=== PATIENT | male | born 1955 | race Two or more races ===

== ENCOUNTER 2019-04-26 13:04 | Emergency (ER) | payer OTHER ==
[~2019-04-26] VITALS: Ht 170.2 cm; Wt 90.7 kg
--- NOTE | 2019-04-26 13:12 | NUR ---
PT BIB [facility] FROM HOME, LOW BACK PAIN WORSE TODAY,H/O GLF A MONTH AGO. PT AAOX4, NO ACUTE DISTRESS NOTED, CONNECTED TO THE MONITOR. WILL CONTINUE TO MONITOR
--- NOTE | 2019-04-26 13:56 | NUR ---
IV LINE ESTABLISHED. BLOOD DRAWNED AND SENT TO LAB
[2019-04-26] MEDS ORDERED: MORPHINE SULFATE INJ 2 MG/ML DISP.SYRIN IV ONE (14:00)
[2019-04-26] MEDS ORDERED: ONDANSETRON HCL/PF 4 MG/2 ML VIAL IVP ONE (14:00)
[2019-04-26] MEDS ORDERED: IV NS 0.9% 1,000 ML BAG IV ONE (14:00)
[2019-04-26 14:01] LABS: BASOPHILS # (AUTO) 0.1 /CMM (0.0-0.2); BASOPHILS % (AUTO) 1.1 % (0.0-2.0); EOSINOPHILS % (AUTO) 1.8 % (0.0-6.0); HEMATOCRIT 38 % (39-51); LYMPHOCYTES # (AUTO) 1.3 /CMM (0.8-4.8); LYMPHOCYTES % (AUTO) 17.7 % (20.0-44.0); MEAN CORPUSCULAR HGB CONC 35 g/dl (31.0-36.0); MEAN CORPUSCULAR VOLUME 94 fL (80-96); MONOCYTES # (AUTO) 0.4 /CMM (0.1-1.30); MONOCYTES % (AUTO) 5.6 % (2.0-12.0); NEUTROPHILS # (AUTO) 5.4 /CMM (1.8-8.9); NEUTROPHILS % (AUTO) 73.8 % (43.0-81.0); PLATELET COUNT (AUTO) 142 /CMM (150-450); RED BLOOD CELL COUNT(AUTO) 3.97 MIL/uL (4.5-6.0); WHITE BLOOD COUNT (AUTO) 7.3 K/uL (4.3-11.0)
[2019-04-26 14:02] LABS: APPEARANCE,URINE Clear (CLEAR); BILIRUBIN,URINE Negative (NEGATIVE); BLOOD, URINE Negative Ery/uL (NEGATIVE); COLOR,URINE Yellow (YELLOW); KETONES,URINE Negative (NEGATIVE); LEUKOCYTE ESTERASE ,URINE Negative (NEGATIVE); NITRITE, URINE Negative (NEGATIVE); PROTEIN,URINE Negative (NEGATIVE); UGLUCOSE Negative (NEGATIVE); UROBILINOGEN,URINE 0.2 EU/dL (0.2)
[2019-04-26] MEDS ORDERED: ONDANSETRON HCL/PF 4 MG/2 ML VIAL ONE (14:07)
[2019-04-26] MEDS ORDERED: MORPHINE SULFATE INJ 4 MG/ML DISP.SYRIN ONE (14:08)
--- NOTE | 2019-04-26 14:10 | NUR ---
PT SENT TO CT
[2019-04-26 14:13] LABS: CALCIUM, SERUM 9.2 mg/dL (8.5-10.1); CREATININE 1.3 mg/dL (0.6-1.3); POTASSIUM 3.6 mmol/L (3.5-5.1)
[2019-04-26 14:18] LABS: ALBUMIN 3.6 g/dL (3.4-5.0); BILIRUBIN,DIRECT 0.1 mg/dL (0.0-0.2); BILIRUBIN,TOTAL 0.5 mg/dL (0.2-1.0); TOTAL PROTEIN, SERUM 6.3 g/dL (6.4-8.2)
--- NOTE | 2019-04-26 14:30 | NUR ---
URINE SPECIMEN COLLECTED AND SENT TO LAB
--- NOTE | 2019-04-26 14:36 | NUR ---
PT AWAKE, CONNECTED BACK TO THE MONITOR. WILL CONTINUE TO MONITOR.
--- NOTE | 2019-04-26 15:35 | NUR ---
Note irena in EDM - 04/26/19 at 1537 by LYNDSEY IV removed. Catheter intact and site benign. Pressure and 4x4 applied to site. No bleeding noted. Patient discharged to waiting area in stable condition. Written and verbal after care instructions given. Patient verbalizes understanding of instruction.
--- NOTE | 2019-04-26 15:37 | NUR ---
IV removed. Catheter intact and site benign. Pressure and 4x4 applied to site. No bleeding noted. Patient discharged to home in stable condition. Written and verbal after care instructions given. Patient verbalizes understanding of instruction.
[2019-04-26 15:38] VITALS: BP 137/82
[2019-04-27] MEDS ORDERED: METO25TA6 PO (08:24)
[2019-04-27] MEDS ORDERED: CLOP75TA15 PO (08:24)
== END 2019-04-26 15:39 | disposition home or self-care (01) ==
LOC: ER 13:08
DX: S39.012A Strain of muscle, fascia and tendon of lower back, initial encounter (principal); I10 Essential (primary) hypertension; Z86.73 Personal history of transient ischemic attack (TIA), and cerebral infarction without residual deficits; Z60.2 Problems related to living alone; W18.39XA Other fall on same level, initial encounter; Y93.89 Activity, other specified; Y92.89 Other specified places as the place of occurrence of the external cause; Y99.8 Other external cause status
CPT/HCPCS: 36415; 74176; 80048; 80076; 81001; 85025; 96374; 96375; 99284; J2270; J2405; J7030; 81000-TC

== ENCOUNTER 2019-04-26 19:56 | Inpatient (IN) | payer OTHER ==
[~2019-04-26] VITALS: Ht 170.2 cm; Wt 112.0 kg
--- NOTE | 2019-04-26 20:18 | NUR ---
PT [address]IB[address] C/O BACK PAIN, DENIES TRAUMA. WAS SEEN HERE EARLIER TODAY FOR SAME PROBLEM. PT ALSO NOTED WITH ABRASION TO RIGHT ELBOW. PT DENIES FALL AND STATES " I DONT KNOW HOW I GOT THAT" PT AOX3 RR EVEN AND UNLABORED. NO SOB NOTED. NO NVD AT THIS TIME. PT GOWNED. SEEN BY PAUL MOONEY
--- NOTE | 2019-04-26 20:21 | NUR ---
PT TO CT.
[2019-04-26] MEDS ORDERED: ONDANSETRON HCL/PF 4 MG/2 ML VIAL IV ONE (20:30)
[2019-04-26] MEDS ORDERED: MORPHINE SULFATE INJ 2 MG/ML DISP.SYRIN IV ONE (20:30)
[2019-04-26] MEDS ORDERED: MORPHINE SULFATE INJ 4 MG/ML DISP.SYRIN ONE (20:38)
[2019-04-26] MEDS ORDERED: ONDANSETRON HCL/PF 4 MG/2 ML VIAL ONE (20:38)
--- NOTE | 2019-04-26 20:54 | NUR ---
MEDICATED FOR PAIN PER [facility] ORDER. PT CHRIS WELL.
[2019-04-26] MEDS ORDERED: methylPREDNISolone SOD SUCC 125 MG/2ML VIAL IV ONE (21:30)
[2019-04-26] MEDS ORDERED: methylPREDNISolone SOD SUCC 125 MG/2ML VIAL ONE (22:06)
--- NOTE | 2019-04-26 23:25 | NUR ---
CODE STROKE ACTIVATED PER
[2019-04-26 23:47] LABS: BASOPHILS # (AUTO) 0.1 /CMM (0.0-0.2); BASOPHILS % (AUTO) 1.7 % (0.0-2.0); HEMATOCRIT 39 % (39-51); HEMOGLOBIN 13.3 g/dL (13.5-17.5); LYMPHOCYTES # (AUTO) 1.2 /CMM (0.8-4.8); LYMPHOCYTES % (AUTO) 16.8 % (20.0-44.0); MEAN CORPUSCULAR HGB CONC 34 g/dl (31.0-36.0); MEAN CORPUSCULAR VOLUME 95 fL (80-96); MONOCYTES # (AUTO) 0.4 /CMM (0.1-1.30); MONOCYTES % (AUTO) 5.4 % (2.0-12.0); NEUTROPHILS # (AUTO) 5.3 /CMM (1.8-8.9); NEUTROPHILS % (AUTO) 74.1 % (43.0-81.0); PLATELET COUNT (AUTO) 142 /CMM (150-450); RED BLOOD CELL COUNT(AUTO) 4.07 MIL/uL (4.5-6.0); WHITE BLOOD COUNT (AUTO) 7.2 K/uL (4.3-11.0)
--- NOTE | 2019-04-26 23:47 | NUR ---
PT AAOX3, SPEAKING IN FULL SENTENCES. 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 PT STS LT LEG WEAK FOR SOME TIME NOW. DENIES ARDON, DIZZINESS, NUMBNESS, VISUAL CHANGES, N/V, CP, SOB @ THIS TIME. PLACED ON JUNIOR ARCHITECT, SR. WILL CONT TO MONITOR.
[2019-04-26 23:53] LABS: CALCIUM, SERUM 9.1 mg/dL (8.5-10.1); CARBON DIOXIDE 26 mmol/L (21-32); CHLORIDE 100 mmol/L (98-107); CREATININE 1.4 mg/dL (0.6-1.3); GLUCOSE 84 mg/dL (74-106); POTASSIUM 3.4 mmol/L (3.5-5.1); SODIUM SERUM 126 mmol/L (136-145); UREA NITROGEN, BLOOD 14 mg/dL (7-18)
[2019-04-26] MEDS ORDERED: IOHEXOL-350 100 ML VIAL IV ONE (23:55)
[2019-04-26] MEDS ORDERED: CT SWABBABLE VALVE TRANS SET 1 EA INFUS.SET MC ONE (23:55)
[2019-04-26] MEDS ORDERED: IV NS 0.9% 250 ML IV ONE (23:55)
[2019-04-27 00:03] LABS: CHOLESTEROL 129 mg/dL (<200); HDL CHOLESTEROL 33 mg/dL (40-60); LDL 74 mg/dL (0-99); TRIGLYCERIDES 131 mg/dL (30-150)
--- NOTE | 2019-04-27 00:43 | NUR ---
PT ASSIGNED TO 314-2
--- NOTE | 2019-04-27 00:45 | NUR ---
PT REASSIGNED TO 313-2
--- NOTE | 2019-04-27 00:48 | NUR ---
REPORT GIVEN TO MAHESH NEGRON
[2019-04-27 01:00] VITALS: BP 154/76
[2019-04-27] MEDS ORDERED: ENOXAPARIN SODIUM 40 MG/0.4 ML DISP.SYRIN SQ ONE (01:00)
[2019-04-27] MEDS: IV NS 0.9% 1,000 ML IV PRN (01:57)
[2019-04-27 04:00] VITALS: BP 96/82
--- NOTE | 2019-04-27 04:45 | NUR ---
CHANGE IN MENTAL STATUS PATIENT SEEN FOR ROUTINE NEURO CHECK. PATIENT FOUND TO HAVE DROPPED FROM BASELINE GCS 14 DOWN TO GCS 12. PATIENT DIFFICULT TO ARROUSE. WHEN ARROUSED HE WAS CONFUSED ORIENTED X1. PATIENT STILL ABLE TO MOVE ALL EXTREMITIES WITH GOOD STRENGTH. FACE APPEARS SYMMETRICAL. PATIENT STOOD AT BEDSIDE WITH MINIMAL ASSIST TO USE URINAL. GRAVES CALLED TO INFORM OF STATUS CHANGE. NEW STAT ORDERS FOR ABG AND AMMONIA GIVEN.
[2019-04-27 05:12] LABS: ABG BASE EXCESS -3.5 mmol/L; ABG OXYGEN SATURATION 92.1 % (92.0-98.5); ABG PCO2 41.5 mmHg (35.0-45.0); ABG PH 7.343 (7.350-7.450); ABG PO2 70.9 mmHg (75.0-100.0); AaDO2 29.1 mmHg; COHb 0.9 % (0.5-1.5); MetHb 0.5 % (0.0-1.5); O2Hb 90.8 % (94.0-97.0); SITE, ABG Left Radial; VENT MODE, BG ROOM AIR
--- NOTE | 2019-04-27 05:30 | NUR ---
LAB INTO DRAW STAT AMMONIA ABG RESULTS RETURNED. PATIENT OXYGEN FOUND TO BE SLIGHTLY LOW AT 70.9 PER RT RECOMMENDATION PATIENT PLACED ON 2LNC. PATIENT LYING IN BED ARROUSABLE TO TOUCH, APPEARS LETHARGIC SLEEPY. INFORMED OF OXYGEN TREATMENT PT STATED OH AND AGAIN CLOSED HIS EYES. WILL CONT TO MONITOR.
[2019-04-27] MEDS ORDERED: BLOOD SUGAR DIAGNOSTIC 1 EACH STRIP IN SCH ×2 (06:00→07:30)
--- NOTE | 2019-04-27 07:48 | NUR ---
[employer] SPECIALIST OPENING NOTES Received Patient resting and asleep in bed. VS stable with no acute distress. Breathing even and unlabored on 2LPM via NC with no respiratory distress. No signs and symptoms of pain. Telemonitor in place and patent reading SR with HR-76. PIV on LAC clean, dry, intact and flushing well with NS running at 75ml/hr. Safety precautions in place. Bed locked and set to lowest position with side rails x 2 up. All needs rendered at this time. Call light within reach. Will continue to monitor.
[2019-04-27 08:00] VITALS: BP 127/71
[2019-04-27] MEDS ORDERED: METO25TA6 PO (08:24)
[2019-04-27] MEDS ORDERED: CLOP75TA15 PO (08:24)
[2019-04-27] MEDS: BLOOD SUGAR DIAGNOSTIC 1 EACH STRIP IN SCH ×3 (11:58→21:30)
[2019-04-27 16:00] VITALS: BP 100/58
--- NOTE | 2019-04-27 17:16 | NUR ---
MS RN NOTES Obtained urine specimen at this time. Placed in fridge. Will continue to monitor.
[2019-04-27] MEDS: MORPHINE SULFATE INJ 2 MG/ML DISP.SYRIN IV PRN (18:22)
--- NOTE | 2019-04-27 18:48 | NUR ---
MS RN CLOSING NOTES Patient resting in bed. VS stable with no acute distress. Breathing even and unlabored on room air with no respiratory distress. Patient stated pain level of 8/10 on LOWER BACK. Administered Morphine 2mg IVP at 1822 per Patients request. Will endorse to oncoming shift. 20g PIV on LAC clean, dry, intact and flushing well with NS running at 75ml/hr. Safety precautions in place. Bed locked and set to lowest position with side rails x 2 up. All needs rendered at this time. Call light within reach. Will endorse plan of care to oncoming shift.
[2019-04-27 18:58] LABS: CREATININE, URINE 58.7 MG/DL (30.0-125.0); URINE TOTAL PROTEIN 4.6 mg/dL (0-11.9)
[2019-04-27 19:01] LABS: APPEARANCE,URINE Clear (CLEAR); BILIRUBIN,URINE Negative (NEGATIVE); BLOOD, URINE Negative Ery/uL (NEGATIVE); COLOR,URINE Yellow (YELLOW); KETONES,URINE 15 (NEGATIVE); LEUKOCYTE ESTERASE ,URINE Negative (NEGATIVE); NITRITE, URINE Negative (NEGATIVE); PH,URINE 5.5 (5.0-8.0); PROTEIN,URINE Negative (NEGATIVE); UGLUCOSE Negative (NEGATIVE); UROBILINOGEN,URINE 0.2 EU/dL (0.2)
--- NOTE | 2019-04-27 19:20 | NUR ---
MS RN OPENING NOTE PM BEDSIDE REPORT RECIEVED FROM REJI NEGRON. Patient resting in bed. Breathing even and unlabored SUPPLEMENTAL 2LNC REAPPLIED BUT PT IN NO respiratory distress. Patient STILL REPORTING LOWER BACK PAIN THAT RADIATES TO RIGHT SIDE RATES PAIN 4/10. REVIEWED PAIN MANAGEMENT PLAN. 20g PIV on LAC clean, dry, intact NS running at 75ml/hr. Safety precautions in place. Bed locked and set to lowest position with side rails x 2 up BED ALARM ACTIVE. Call light within reach. PATIENT VERBALIZED UNDERSTANDING TO CALL FOR ASSISTANCE NEEDED.
[2019-04-27 20:00] VITALS: BP 132/90
[2019-04-27 20:20] LABS: EOSINOPHIL,URINE None Seen
[2019-04-27] MEDS: ENOXAPARIN SODIUM 40 MG/0.4 ML DISP.SYRIN SQ SCH (21:19)
[2019-04-27] MEDS: METOPROLOL TARTRATE 25 MG TABLET PO SCH (21:21)
[2019-04-27] MEDS: HYDROCODONE/APAP 5/325MG 1 EACH TABLET PO PRN (21:22)
[2019-04-28] MEDS: IV NS 0.9% 1,000 ML IV PRN (03:49)
[2019-04-28] MEDS: HYDROCODONE/APAP 5/325MG 1 EACH TABLET PO PRN ×5 (04:20→19:49)
--- NOTE | 2019-04-28 05:34 | NUR ---
patient offered assistance to get washed up this am and help being repositioned in bed by the aide otilio but refusig. patient seen he is lying on stomach, patient alert oriented x2 his blankets are scrunched up and gown is nursing home off nc 2l is off and patient refusing reorientation an oxygen, states "I dont want to move. i don't care, i dont need it." patient in no aspprent distress denies sob. will cont to monitor
--- NOTE | 2019-04-28 06:10 | NUR ---
MS RN CLOSING NOTES Patient awoken in bed to have labs drawn. pt in no acute distress. Breathing even and unlabored on placed back on 2lnc with no respiratory distress. Patient stated pain level of 6/10 on LOWER BACK. Administered norco 5/325mg per Patients request. 20g PIV on LAC clean, dry, intact and flushing well with NS running at 75ml/hr. Safety precautions in place. Bed locked and set to lowest position with side rails x 2 up. Call light within reach. Will endorse plan of care to oncoming shift.
[2019-04-28 06:36] LABS: BASOPHILS % (AUTO) 0.3 % (0.0-2.0); EOSINOPHILS % (AUTO) 1.1 % (0.0-6.0); HEMATOCRIT 37 % (39-51); HEMOGLOBIN 12.5 g/dL (13.5-17.5); LYMPHOCYTES # (AUTO) 1.5 /CMM (0.8-4.8); LYMPHOCYTES % (AUTO) 21.9 % (20.0-44.0); MEAN CORPUSCULAR HGB CONC 34 g/dl (31.0-36.0); MEAN CORPUSCULAR VOLUME 96 fL (80-96); MONOCYTES # (AUTO) 0.6 /CMM (0.1-1.30); MONOCYTES % (AUTO) 9.1 % (2.0-12.0); NEUTROPHILS # (AUTO) 4.6 /CMM (1.8-8.9); NEUTROPHILS % (AUTO) 67.6 % (43.0-81.0); PLATELET COUNT (AUTO) 135 /CMM (150-450); RED BLOOD CELL COUNT(AUTO) 3.84 MIL/uL (4.5-6.0); WHITE BLOOD COUNT (AUTO) 6.8 K/uL (4.3-11.0)
[2019-04-28 07:01] LABS: ALBUMIN 3.3 g/dL (3.4-5.0); BILIRUBIN,TOTAL 0.4 mg/dL (0.2-1.0); CALCIUM, SERUM 8.6 mg/dL (8.5-10.1); MAGNESIUM 2.2 mg/dL (1.8-2.4); PHOSPHORUS 3.3 mg/dL (2.5-4.9); POTASSIUM 3.7 mmol/L (3.5-5.1); TOTAL PROTEIN, SERUM 6.1 g/dL (6.4-8.2)
--- NOTE | 2019-04-28 07:25 | NUR ---
RN OPENING NOTE PT WAS RECEIVED IN BED AT LOWEST AND LOCKED POSITION WITH SIDE RAILS UP X2, A/O X2 WITH EXPRESSIVE APHASIA, BREATHING EVEN AND UNLABORED ON 2L, NO S/S OF ANY DISTRESS OR PAIN NOTED AT THIS TIME, IV IS PATENT AND INTACT WITH IVF RUNNING, PER NIGHT RN BLOOD SUGARS WERE STABLE WITH NO COVERAGE GIVEN, SAFETY PRECAUTIONS IN PLACE, CALL LIGHT WITHIN REACH, WILL MONITOR PT ACCORDINGLY
[2019-04-28] MEDS: BLOOD SUGAR DIAGNOSTIC 1 EACH STRIP IN SCH ×4 (07:35→21:13)
[2019-04-28 08:00] VITALS: BP 129/72
[2019-04-28] MEDS: CLOPIDOGREL BISULFATE 75 MG TABLET PO SCH (08:31)
[2019-04-28] MEDS: METOPROLOL TARTRATE 25 MG TABLET PO SCH ×2 (08:32→21:09)
[2019-04-28 16:06] VITALS: BP 136/70
--- NOTE | 2019-04-28 18:07 | NUR ---
RN CLOSING NOTE PT IN BED AT LOWEST AND LOCKED POSITION WITH SIDE RAILS UP X2, A/O X3 BREATHING EVEN AND UNLABORED WITH NO S/S OF ANY DISTRESS OR PAIN, IV IS PATENT AND INTACT, SAFETY PRECAUTIONS IN PLACE, CALL LIGHT WITHIN REACH, ALL NEEDS ATTENDED TO, WILL ENDORSE TO MANAGER OUTREACH FOR NELLIE.
--- NOTE | 2019-04-28 19:10 | NUR ---
RN PM OPENING NOTE BEDSIDE REPORT RECIEVED FROM YFN NEGRON. PT AX0X3 BUT CAN'T REMEMBER SPECIFICS LIKE NAME OF HOSPITAL BUT KNOWS CORRECT MONTH AND YEAR AND WHY HE IS HERE. BED AT LOWEST AND LOCKED POSITION WITH SIDE RAILS UP X2, BREATHING EVEN AND UNLABORED WITH NO S/S OF ANY DISTRESS IV IS PATENT AND INTACT. SAFETY PRECAUTIONS IN PLACE, BED ALARM ACTIVE. CALL LIGHT WITHIN REACH, PATIENT VERBALIZED UNDERSTANDING TO CALL FOR ASSISTANCE NEEDED.
[2019-04-28 20:25] VITALS: BP 140/85
--- NOTE | 2019-04-28 21:00 | NUR ---
PT REFUSING CONT IV INFUSION PATIENT REFUSING CONT IV INFUSION. INFORMED OF BENEFITS AND THAT MD ORDERED TREATMENT IS RECOMMENDING CONT IV INFUSION. PT STATES, "ITS JUST SO ANNOYING. I REALLY DON'T WANT TO BE CONNECTED TO THAT THING ALL NIGHT, ITS REALLY BOTHERING ME." IVF STOPPED. PATIENT ENCOURAGED TO DRINK WATER. PATIENT TOLERATING PO INTAKE AND IS DRINKING FLUID REGULARLY. WILL CONT TO MONITOR.
[2019-04-28] MEDS: ENOXAPARIN SODIUM 40 MG/0.4 ML DISP.SYRIN SQ SCH (21:11)
[2019-04-28] MEDS: MORPHINE SULFATE INJ 2 MG/ML DISP.SYRIN IV PRN (21:12)
[2019-04-29] MEDS ORDERED: MAG HYDROX/AL HYDROX/SIMETH 30 ML UDC PO PRN
--- NOTE | 2019-04-29 06:50 | NUR ---
RN PM CLOSING NOTE PT AX0X3 STILL HAS MINOR APHASIA. BED AT LOWEST AND LOCKED POSITION WITH SIDE RAILS UP X2, BREATHING EVEN AND UNLABORED WITH NO S/S OF ANY DISTRESS IV IS PATENT AND INTACT. BS CHECKED AND LEVEL AT 76. SAFETY PRECAUTIONS IN PLACE, BED ALARM ACTIVE. CALL LIGHT WITHIN REACH, PATIENT VERBALIZED UNDERSTANDING TO CALL FOR ASSISTANCE NEEDED.
[2019-04-29] MEDS: BLOOD SUGAR DIAGNOSTIC 1 EACH STRIP IN SCH ×4 (06:51→22:07)
[2019-04-29 07:01] LABS: BASOPHILS % (AUTO) 0.7 % (0.0-2.0); HEMATOCRIT 36 % (39-51); HEMOGLOBIN 12.2 g/dL (13.5-17.5); LYMPHOCYTES # (AUTO) 1.6 /CMM (0.8-4.8); LYMPHOCYTES % (AUTO) 35.9 % (20.0-44.0); MEAN CORPUSCULAR HGB CONC 34 g/dl (31.0-36.0); MEAN CORPUSCULAR VOLUME 95 fL (80-96); MONOCYTES # (AUTO) 0.4 /CMM (0.1-1.30); NEUTROPHILS # (AUTO) 2.2 /CMM (1.8-8.9); NEUTROPHILS % (AUTO) 51.4 % (43.0-81.0); PLATELET COUNT (AUTO) 116 /CMM (150-450); RED BLOOD CELL COUNT(AUTO) 3.75 MIL/uL (4.5-6.0); WHITE BLOOD COUNT (AUTO) 4.3 K/uL (4.3-11.0)
--- NOTE | 2019-04-29 07:05 | NUR ---
MS RN INITIAL NOTES Report received. Patient received in bed, sleeping comfortably, easily aroused. No S&S of distress. No facial grimacing noted. Safety measures in place. Will continue to monitor and assess patient
[2019-04-29 07:11] LABS: ALBUMIN 3.1 g/dL (3.4-5.0); BILIRUBIN,TOTAL 0.4 mg/dL (0.2-1.0); CALCIUM, SERUM 8.6 mg/dL (8.5-10.1); MAGNESIUM 2.1 mg/dL (1.8-2.4); PHOSPHORUS 3.2 mg/dL (2.5-4.9); POTASSIUM 3.7 mmol/L (3.5-5.1); TOTAL PROTEIN, SERUM 5.7 g/dL (6.4-8.2)
[2019-04-29 08:00] VITALS: BP 158/77
[2019-04-29] MEDS: METOPROLOL TARTRATE 25 MG TABLET PO SCH ×2 (09:03→21:39)
[2019-04-29] MEDS: CLOPIDOGREL BISULFATE 75 MG TABLET PO SCH (09:03)
--- NOTE | 2019-04-29 09:50 | NUR ---
WOUND CARE CONSULT: PT PRESENTS WITH MULTIPLE AREAS OF BRUISING AND DRY ABRASIONS TO RT ELBOW AND RT KNEE PRESENT ON ADMISSION. PT IS INDEPENDENT WITH BED MOBILITY AND AMBULATES TO BATHROOM. WILL SEE PRN. CURRENT CAROLEE SCORE IS 20. Addendum: 04/29/19 at 0952 by BARTOLO VENEGAS WNDNU Amended: Links added.
[2019-04-29] MEDS: HYDROCODONE/APAP 5/325MG 1 EACH TABLET PO PRN ×2 (10:00→21:40)
--- NOTE | 2019-04-29 11:19 | NUR ---
MS RN NOTES offered patient to be showered but patient refused. Patient stated that he has taken a shower already, per MEDICAL UNDERWRITER.
--- NOTE | 2019-04-29 13:41 | NUR ---
Social service consult requested by PAUL Manning for pt. needing assistance at home. Pt. is a 63 year old male who was admitted to [facility] on 04/27 for back pain. SW met with pt. bedside. Pt. was lying in bed. Pt. is alert and oriented x 4.Pt. was pleasant and cooperative with SW during the assessment. Pt. needs some assistance with his ADL's. Pt. [place] alone [place] [address] [address], [facility] [place] [address]. Pt's emergency contact is his sister Yamile, however pt wasn't able to remember her phone number. Yamile's contact number is [phone]. SW got the number from case therapist Myriam. Pt. is a . Pt. has a psychiatric diagnosis of PTSD and is on medications but cannot remember them. [facility] [place] [facility] [address] [facility]. Pt. denies suicidal and homicidal ideations and visual/auditory hallucinations at this time. Pt. denies alcohol and drug use. Pt. states, once in a while he will have a puff of a cigarette. Pt. has been referred to [facility] per case therapist Myriam. No other social service needs are requested at this time. SW is available, if needed.
[2019-04-29 16:00] VITALS: BP 152/107
--- NOTE | 2019-04-29 17:38 | NUR ---
MS RN NOTES Accucheck: No coverage needed for lunch and dinner. BS both below 100. Please check chart for exact result
--- NOTE | 2019-04-29 19:13 | NUR ---
MS RN CLOSING NOTES Patient ambulates from bed to bathroom. Adviced patient to stay in bed and call for assistance to prevent from fall. Patient is non-compliant and continues to ambulate alone. All due meds given and tolerated. No SOB/labored breathing noted. Not in any type of distress. Alert, awake, and oriented x3, verbally responsive. Patient also refused to be connected to IV fluids. Patient has been taking oral intakes (food and water) well/adequately. Explained risks vs benefits x3 but still refuses IVF. Kept patient clean and dry as possible. [facility] sales representative supervisor came to speak with patient and requested to call and inform him when discharge plan or order is in place. BS is controlled - no coverage given. Safety measures in place. Bed in lowest position with bed alarm on and call light within reach. Endorsed to oncoming shift nurse
--- NOTE | 2019-04-29 19:50 | NUR ---
RN NOTES RECEIVED PATIENT AWAKE, ALERT ORIENTED X3, IV ACCESS INTACT AND PATENT, SAFETY MEASURES IN PLACE, CALL LIGHT WITHIN EASY REACH. WILL MONITOR FOR CONTINUITY OF CARE.
[2019-04-29 20:00] VITALS: BP 144/116
[2019-04-29] MEDS: ENOXAPARIN SODIUM 40 MG/0.4 ML DISP.SYRIN SQ SCH (21:38)
[2019-04-30] MEDS: HYDROCODONE/APAP 5/325MG 1 EACH TABLET PO PRN (03:32)
[2019-04-30 06:06] LABS: *SPE A/G RATIO 1.3 (0.7-1.7); *SPE ALBUMIN 3.2 g/dL (2.9-4.4); *SPE ALPHA-1-GLOBULIN 0.3 g/dL (0.0-0.4); *SPE ALPHA-2-GLOBULIN 0.9 g/dL (0.4-1.0); *SPE BETA GLOBULIN 0.8 g/dL (0.7-1.3); *SPE GLOBULIN, TOTAL 2.4 g/dL (2.2-3.9); *SPE M-SPIKE Not Observed g/dL (Not Observed); *SPEGAMMA GLOBULIN 0.4 g/dL (0.4-1.8)
--- NOTE | 2019-04-30 07:23 | NUR ---
RN NOTES ALL NEEDS ATTENDED AND MET, ABLE TO REST AND SLEPT AT INTERVAL, SAFETY MEASURES IN PLACED, CALL LIGHT WITH IN EASY REACH. ENDORSED TO AM NURSE FOR CONTINUITY OF CARE.
[2019-04-30] MEDS: BLOOD SUGAR DIAGNOSTIC 1 EACH STRIP IN SCH ×3 (07:30→17:33)
[2019-04-30 07:33] LABS: CALCIUM, SERUM 8.6 mg/dL (8.5-10.1); CREATININE 0.8 mg/dL (0.6-1.3); PHOSPHORUS 3.2 mg/dL (2.5-4.9); POTASSIUM 3.5 mmol/L (3.5-5.1)
[2019-04-30 07:38] LABS: BASOPHILS % (AUTO) 0.8 % (0.0-2.0); EOSINOPHILS % (AUTO) 4.5 % (0.0-6.0); HEMATOCRIT 35 % (39-51); HEMOGLOBIN 12.2 g/dL (13.5-17.5); LYMPHOCYTES # (AUTO) 1.6 /CMM (0.8-4.8); LYMPHOCYTES % (AUTO) 33.6 % (20.0-44.0); MEAN CORPUSCULAR HGB CONC 35 g/dl (31.0-36.0); MEAN CORPUSCULAR VOLUME 95 fL (80-96); MONOCYTES # (AUTO) 0.5 /CMM (0.1-1.30); MONOCYTES % (AUTO) 9.7 % (2.0-12.0); NEUTROPHILS # (AUTO) 2.4 /CMM (1.8-8.9); NEUTROPHILS % (AUTO) 51.4 % (43.0-81.0); PLATELET COUNT (AUTO) 119 /CMM (150-450); WHITE BLOOD COUNT (AUTO) 4.7 K/uL (4.3-11.0)
[2019-04-30 08:00] VITALS: BP 126/68
--- NOTE | 2019-04-30 08:00 | NUR ---
MS RN NOTES PATIENT IN BED RESTING NO SOB OR ACUTE DISTRESS NOTED. PATIENT ALERT, ORIENTED X3. PERIPHERAL IV INTACT PATENT. BED IN LOW LOCKED POSITION. CALL LIGHT WITHIN REACH. WILL CONTINUE TO MONITOR.
[2019-04-30] MEDS: METOPROLOL TARTRATE 25 MG TABLET PO SCH (09:37)
[2019-04-30] MEDS: MORPHINE SULFATE INJ 2 MG/ML DISP.SYRIN IV PRN (09:37)
[2019-04-30] MEDS: CLOPIDOGREL BISULFATE 75 MG TABLET PO SCH (09:37)
[2019-04-30 12:07] LABS: PTH, INTACT 24 pg/mL (15-65)
[2019-04-30] MEDS ORDERED: METO25TA20 PO (15:06)
[2019-04-30 16:00] VITALS: BP 135/73
--- NOTE | 2019-04-30 19:09 | NUR ---
MS DISCHARGE NOTED. PATIENT DISCHARGED HOME WITH SISTER. PATIENT ALERT, ORIENTED X3. DISCHARGE PROTOCOL FOLLOWED. PERIPHERAL IV REMOVED. ALL BELONGINGS ACCOUNTED FOR, BELONGING LIST SIGNED. PATIENT REFUSED DISCHARGE PICTURES STATES HIS WOUNDS ARE BETTER NOW. DISCHARGE EDUCATION PROVIDED VERBALIZED UNDERSTANDING. DISCHARGE INSTRUCTIONS PROVIDED TO PATIENT AND SISTER. [facility] INFORMATION PROVIDED TO PATIENT AND SISTER FOR FOLLOW UP ANOINTMENTS. PATIENT ESCORTED TO CAR BY ADJUNCT PROFESSOR OF [employer] WITH SISTER AT BEDSIDE. PERIPHERAL IV REMOVED AND ID BAND ALSO REMOVED.
== END 2019-04-30 19:00 | disposition home or self-care (01) | DRG 551 ==
LOC: ER 20:02 → MED 04-27 00:48 → TELE 04-27 02:00 → MED 04-27 07:58
PROVIDERS: ADMIT Internal Medicine; ATTEND Hospitalist
DX: M48.07 Spinal stenosis, lumbosacral region (principal); N17.0 Acute kidney failure with tubular necrosis; E87.1 Hypo-osmolality and hyponatremia; R29.6 Repeated falls; D63.8 Anemia in other chronic diseases classified elsewhere; E11.9 Type 2 diabetes mellitus without complications; E87.6 Hypokalemia; I10 Essential (primary) hypertension; Z86.79 Personal history of other diseases of the circulatory system; R53.1 Weakness; Z79.1 Long term (current) use of non-steroidal anti-inflammatories (NSAID); I69.320 Aphasia following cerebral infarction; S50.01XA Contusion of right elbow, initial encounter; X58.XXXA Exposure to other specified factors, initial encounter; Y93.9 Activity, unspecified; Y92.89 Other specified places as the place of occurrence of the external cause; E86.1 Hypovolemia
CPT/HCPCS: 36415; 36600; 70450-TC; 71045-TC; 72131-TC; 73080-TC; 76700-TC; 80048-TC; 80053-TC; 80061-TC; 80305; 81000-TC; 82140-TC; 82550-TC; 82570-TC; 82962-TC; 83735-TC; 83970; 84100-TC; 84155; 84155-TC; 84165; 84300-TC; 84443-TC; 84484-TC; 85025-TC; 85730-TC; 87081-TC; 92526; 92611-TC; 93307-TC; 93880-TC; 94799-TC; 97116-TC; 97530-TC; A6403; G0378; J1650; J2270; J2405; J2930; J7030; J7050; Q9967